=== PATIENT | male | born 1975 | race Caucasian/White ===

== ENCOUNTER 2016-06-15 10:47 | Outpatient (CLI) | payer OTHER | END 2016-06-15 18:06 | disposition home or self-care (01) | LOC: SMI 10:47 → EEVIPCON 10:47 → SMI 18:06 | DX: S09.90XA Unspecified injury of head, initial encounter (principal); X58.XXXA Exposure to other specified factors, initial encounter; Y93.89 Activity, other specified; Y92.89 Other specified places as the place of occurrence of the external cause; Y99.8 Other external cause status; S62.102A Fracture of unspecified carpal bone, left wrist, initial encounter for closed fracture | CPT/HCPCS: 70551 ==